=== PATIENT | female | born 1940 | race Caucasian/White ===

== ENCOUNTER 2022-07-04 13:28 | Inpatient (IN) | payer OTHER ==
[2022-07-04] MEDS ORDERED: ACETAMINOPHEN 1000 MG/100 ML BAG IVPB ONE (14:40)
[2022-07-04] MEDS ORDERED: LACTATED RINGERS SOLUTION 1000 ML INFUS.BAG IV ONE (14:42)
[2022-07-04] MEDS ORDERED: ACETAMINOPHEN INJECTION 100 ML IVPB ONE ×2 (15:17→15:22)
[2022-07-04] MEDS ORDERED: ONDANSETRON 4 MG/2 ML VIAL ONE (15:17)
[2022-07-04] MEDS ORDERED: ONDANSETRON 4 MG/2 ML VIAL IVPUSH ONE (15:30)
[2022-07-04 15:42] LABS: BASO % 0.2 % (0-2.0); HEMATOCRIT 39.9 % (32.4-45.2); HEMOGLOBIN 13.4 GM/dL (10.7-15.3); LYMPH % 9.2 % (8-40); MCH 31.6 pg (25.7-33.7); MCHC 33.5 g/dl (32.0-36.0); MEAN CELL VOLUME 94.1 fl (80-96); MEAN PLT VOLUME 6.7 fl (7.5-11.1); MONO % 9.4 % (3.8-10.2); NEUT % 81.2 % (42.8-82.8); PLATELET COUNT 303 10^3/uL (134-434); RBC 4.24 M/mm3 (3.60-5.2); RDW 13.7 % (11.6-15.6)
[2022-07-04 16:08] LABS: ALBUMIN 3.8 g/dl (3.4-5.0); BLOOD UREA NITROGEN 30.5 mg/dL (7-18); CALCIUM 9.5 mg/dL (8.5-10.1); MAGNESIUM 3.1 mg/dL (1.8-2.4)
[2022-07-04 16:11] LABS: CREATININE 0.7 mg/dL (0.55-1.3)
[2022-07-04 16:12] LABS: BILIRUBIN,TOTAL 0.5 mg/dL (0.2-1); TOT PROT 7.5 g/dl (6.4-8.2)
[2022-07-04 19:40] LABS: CHLORIDE 94 mmol/L (98-107); SODIUM 131 mmol/L (136-145)
[2022-07-04 19:41] LABS: CALCIUM 9.6 mg/dL (8.5-10.1); CO2 25 mmol/L (21-32); GLUCOSE,RANDOM 145 mg/dL (74-106)
[2022-07-04 19:42] LABS: BLOOD UREA NITROGEN 31.6 mg/dL (7-18)
[2022-07-04 19:46] LABS: CREATININE 0.8 mg/dL (0.55-1.3)
[2022-07-04 19:47] LABS: ANION GAP 13 MMOL/L (8-16)
[2022-07-04] MEDS: KCL 10 MEQ IVPB 10 MEQ/100 ML INFUS.BAG IVPB SCH (21:00)
[2022-07-04] MEDS ORDERED: KCL 10 MEQ IVPB 30 MEQ/300 ML INFUS.BAG IVPB ONE (21:30)
[2022-07-04] MEDS ORDERED: SODIUM CHLORIDE 1,000 ML IV SCH (22:45)
[2022-07-04] MEDS ORDERED: ROSUVASTATIN CA 20 MG TABLET PO SCH (23:00)
[2022-07-04] MEDS ORDERED: ACETAMINOPHEN 1000 MG/100 ML BAG IVPB PRN (23:47)
[2022-07-05] MEDS: KCL 10 MEQ IVPB 10 MEQ/100 ML INFUS.BAG IVPB SCH ×5 (00:50→17:34)
[2022-07-05] MEDS ORDERED: ACETAMINOPHEN 1000 MG/100 ML BAG IVPB PRN (01:50)
[2022-07-05] MEDS: SODIUM CHLORIDE 1,000 ML IV SCH (01:52)
[2022-07-05] MEDS: MUPIROCIN 2% TOPICAL OINTMENT FOR DECOLONIZATION NS SCH ×3 (01:52→21:14)
[2022-07-05] MEDS ORDERED: PROPOFOL 20 ML ONE (07:20)
[2022-07-05] MEDS ORDERED: SUCCINYLCHOLINE CHLORIDE 200 MG/10 ML SYRINGE ONE (07:20)
[2022-07-05] MEDS ORDERED: MIDAZOLAM HCL 2 MG/2 ML SINGLE DOSE VIAL ONE (07:20)
[2022-07-05] MEDS ORDERED: PHENYLEPHRINE HCL 10 MG/1 ML SINGLE DOSE VIAL ONE (07:33)
[2022-07-05] MEDS ORDERED: ETOMIDATE 20 MG/10 ML VIAL IVPUSH ONE (07:33)
[2022-07-05 07:58] LABS: INR 1.09 (0.83-1.09); PROTHROMBIN TIME (PATIENT) 12.6 SEC (9.7-13.0)
[2022-07-05 08:16] LABS: BASO % 0.2 % (0-2.0); CHLORIDE 99 mmol/L (98-107); HEMATOCRIT 35.3 % (32.4-45.2); HEMOGLOBIN 12.4 GM/dL (10.7-15.3); LYMPH % 4.9 % (8-40); MCH 32.7 pg (25.7-33.7); MCHC 35.1 g/dl (32.0-36.0); MEAN CELL VOLUME 93.1 fl (80-96); MEAN PLT VOLUME 7.5 fl (7.5-11.1); MONO % 7.5 % (3.8-10.2); NEUT % 87.4 % (42.8-82.8); PLATELET COUNT 276 10^3/uL (134-434); RBC 3.79 M/mm3 (3.60-5.2); RDW 13.7 % (11.6-15.6); SODIUM 132 mmol/L (136-145); WHITE BLOOD COUNT 15.6 K/mm3 (4.0-10.0)
[2022-07-05 08:22] LABS: ALBUMIN 3.1 g/dl (3.4-5.0); CALCIUM 8.5 mg/dL (8.5-10.1); CO2 23 mmol/L (21-32); GLUCOSE,RANDOM 122 mg/dL (74-106); MAGNESIUM 2.6 mg/dL (1.8-2.4)
[2022-07-05 08:26] LABS: CREATININE 0.6 mg/dL (0.55-1.3); PHOSPHOROUS 3.8 mg/dL (2.5-4.9); SGOT/AST 58 U/L (15-37); SGPT/ALT 38 U/L (13-61)
[2022-07-05 08:28] LABS: ALK PHOS 67 U/L (45-117); BILIRUBIN,TOTAL 0.8 mg/dL (0.2-1); TOT PROT 6.2 g/dl (6.4-8.2)
[2022-07-05 08:37] LABS: ANION GAP 11 MMOL/L (8-16)
[2022-07-05] MEDS ORDERED: ceFAZolin SODIUM 1 GM VIAL IVPB ONE (08:56)
[2022-07-05] MEDS ORDERED: metoPROLOL SUCCINATE 25 MG TAB.SR.24H (FP) PO SCH (10:00)
[2022-07-05] MEDS ORDERED: amLODIPine BESYLATE 5 MG TABLET (FP) PO SCH (10:00)
[2022-07-05] MEDS ORDERED: RAMIPRIL 5 MG CAPSULE PO SCH (10:00)
[2022-07-05] MEDS ORDERED: PNEUMOC 20-VAL CONJ-DIP CRM/PF 0.5 ML SYRINGE IM ONE (10:00)
[2022-07-05] MEDS ORDERED: SUGAMMADEX SODIUM 200 MG/2 ML VIAL ONE (10:47)
[2022-07-05] MEDS ORDERED: KETAMINE HCL 500 MG/10 ML VIAL ONE (10:50)
[2022-07-05] MEDS ORDERED: ACETAMINOPHEN INJECTION 100 ML IVPB ONE (10:51)
[2022-07-05] MEDS: RAMIPRIL 5 MG CAPSULE PO SCH ×2 (12:48→21:14)
[2022-07-05] MEDS: amLODIPine BESYLATE 5 MG TABLET (FP) PO SCH (12:48)
[2022-07-05] MEDS: metoPROLOL SUCCINATE 25 MG TAB.SR.24H (FP) PO SCH (12:49)
[2022-07-05] MEDS ORDERED: SODIUM CHLORIDE 0.9% 500 ML INFUS.BAG IV ONE (13:45)
[2022-07-05] MEDS: CEFAZOLIN SODIUM 2 GM in DEXTROSE 5%-WATER 100 ML IVPB SCH (17:45)
[2022-07-05 19:40] LABS: CHLORIDE 89 mmol/L (98-107); SODIUM 121 mmol/L (136-145)
[2022-07-05 19:42] LABS: ANION GAP 17 MMOL/L (8-16); CO2 15 mmol/L (21-32)
[2022-07-05 19:45] LABS: CREATININE 2.1 mg/dL (0.55-1.3)
[2022-07-05 19:57] LABS: CALCIUM 5.7 mg/dL (8.5-10.1); GLUCOSE,RANDOM 708 mg/dL (74-106)
[2022-07-05] MEDS: CHLORHEXIDINE GLUCONATE 4% CLEANSER FOR DECOLONIZATION TP SCH (21:14)
[2022-07-05 21:41] LABS: BLOOD UREA NITROGEN 28.8 mg/dL (7-18)
[2022-07-05 21:43] LABS: CREATININE 0.6 mg/dL (0.55-1.3)
[2022-07-05 21:45] LABS: BILIRUBIN,TOTAL 0.6 mg/dL (0.2-1); TOT PROT 4.4 g/dl (6.4-8.2)
[2022-07-05 21:49] LABS: ALBUMIN 2.5 g/dl (3.4-5.0); CALCIUM 7.7 mg/dL (8.5-10.1)
[2022-07-05] MEDS ORDERED: CHLORHEXIDINE GLUCONATE 4% CLEANSER FOR DECOLONIZATION TP SCH (22:00)
[2022-07-05] MEDS ORDERED: LACTATED RINGERS SOLUTION 1000 ML INFUS.BAG IV ONE (22:27)
[2022-07-06] MEDS ORDERED: LACTATED RINGERS SOLUTION 1000 ML INFUS.BAG IV ONE ×2 (00:09→02:28)
[2022-07-06] MEDS: CEFAZOLIN SODIUM 2 GM in DEXTROSE 5%-WATER 100 ML IVPB SCH (02:10)
[2022-07-06] MEDS: SODIUM CHLORIDE 1,000 ML IV SCH (03:06)
[2022-07-06] MEDS: PHENYLEPHRINE NS PREMIX 50,000 MCG/500 ML BAG CVP SCH (03:10)
[2022-07-06 07:16] LABS: BASO % 0.2 % (0-2.0); EOS % 0.1 % (0-4.5); HEMATOCRIT 34.8 % (32.4-45.2); HEMOGLOBIN 12.4 GM/dL (10.7-15.3); LYMPH % 12.7 % (8-40); MCH 33.5 pg (25.7-33.7); MCHC 35.6 g/dl (32.0-36.0); MEAN CELL VOLUME 94.1 fl (80-96); MEAN PLT VOLUME 6.9 fl (7.5-11.1); MONO % 4.7 % (3.8-10.2); NEUT % 82.3 % (42.8-82.8); PLATELET COUNT 266 10^3/uL (134-434); RDW 13.7 % (11.6-15.6); WHITE BLOOD COUNT 8.8 K/mm3 (4.0-10.0)
[2022-07-06 07:32] LABS: CALCIUM 7.4 mg/dL (8.5-10.1)
[2022-07-06 07:33] LABS: ALBUMIN 2.1 g/dl (3.4-5.0); BLOOD UREA NITROGEN 29.9 mg/dL (7-18)
[2022-07-06 07:36] LABS: CREATININE 0.6 mg/dL (0.55-1.3)
[2022-07-06 07:38] LABS: BILIRUBIN,TOTAL 0.4 mg/dL (0.2-1); TOT PROT 3.9 g/dl (6.4-8.2)
[2022-07-06] MEDS ORDERED: PIPERACILLIN/TAZOB 4.5 GM 4.5 GM in DEXTROSE 5%-WATER 100 ML IVPB ONE (09:00)
[2022-07-06] MEDS: KCL 10 MEQ IVPB 10 MEQ/100 ML INFUS.BAG IVPB SCH ×3 (09:10→13:11)
[2022-07-06] MEDS: amLODIPine BESYLATE 5 MG TABLET (FP) PO SCH (09:15)
[2022-07-06] MEDS: RAMIPRIL 5 MG CAPSULE PO SCH ×2 (09:15→21:25)
[2022-07-06] MEDS: metoPROLOL SUCCINATE 25 MG TAB.SR.24H (FP) PO SCH (09:15)
[2022-07-06] MEDS ORDERED: HYDROCORTISONE 1% TOPICAL CREAM 30 GM TUBE TP PRN (10:30)
[2022-07-06] MEDS: DEXTROSE 5%-LACTATED RINGERS 1,000 ML IV SCH (11:17)
[2022-07-06] MEDS: MUPIROCIN 2% TOPICAL OINTMENT FOR DECOLONIZATION NS SCH ×2 (11:18→21:25)
[2022-07-06] MEDS: ACETAMINOPHEN 1000 MG/100 ML BAG IVPB SCH ×3 (12:54→23:05)
[2022-07-06] MEDS: PIPERACILLIN/TAZOB 4.5 GM 4.5 GM in DEXTROSE 5%-WATER 100 ML IVPB SCH (17:33)
[2022-07-06] MEDS: CHLORHEXIDINE GLUCONATE 4% CLEANSER FOR DECOLONIZATION TP SCH (21:25)
[2022-07-07] MEDS: PIPERACILLIN/TAZOB 4.5 GM 4.5 GM in DEXTROSE 5%-WATER 100 ML IVPB SCH ×3 (02:08→18:25)
[2022-07-07] MEDS: SODIUM CHLORIDE 1,000 ML IV SCH (02:08)
[2022-07-07] MEDS: ACETAMINOPHEN 1000 MG/100 ML BAG IVPB SCH (06:00)
[2022-07-07] MEDS: PHENYLEPHRINE NS PREMIX 50,000 MCG/500 ML BAG CVP SCH ×2 (06:32→12:00)
[2022-07-07 07:18] LABS: BASO % 0.1 % (0-2.0); HEMATOCRIT 32.4 % (32.4-45.2); HEMOGLOBIN 11.5 GM/dL (10.7-15.3); MCH 33.4 pg (25.7-33.7); MCHC 35.4 g/dl (32.0-36.0); MEAN CELL VOLUME 94.3 fl (80-96); MEAN PLT VOLUME 6.9 fl (7.5-11.1); MONO % 4.5 % (3.8-10.2); NEUT % 84.4 % (42.8-82.8); PLATELET COUNT 247 10^3/uL (134-434); RBC 3.44 M/mm3 (3.60-5.2); WHITE BLOOD COUNT 8.9 K/mm3 (4.0-10.0)
[2022-07-07 07:37] LABS: CHLORIDE 106 mmol/L (98-107); SODIUM 138 mmol/L (136-145)
[2022-07-07 07:42] LABS: ALBUMIN 1.8 g/dl (3.4-5.0); BLOOD UREA NITROGEN 25.8 mg/dL (7-18); CALCIUM 7.2 mg/dL (8.5-10.1); CO2 26 mmol/L (21-32); GLUCOSE,RANDOM 127 mg/dL (74-106)
[2022-07-07 07:43] LABS: MAGNESIUM 2.4 mg/dL (1.8-2.4)
[2022-07-07 07:45] LABS: CREATININE 0.6 mg/dL (0.55-1.3); SGOT/AST 38 U/L (15-37); SGPT/ALT 19 U/L (13-61)
[2022-07-07 07:46] LABS: BILIRUBIN,TOTAL 0.6 mg/dL (0.2-1)
[2022-07-07 07:48] LABS: ALK PHOS 61 U/L (45-117)
[2022-07-07 07:49] LABS: ANION GAP 6 MMOL/L (8-16)
[2022-07-07] MEDS: KCL 10 MEQ IVPB 10 MEQ/100 ML INFUS.BAG IVPB SCH ×6 (08:38→23:20)
[2022-07-07] MEDS: amLODIPine BESYLATE 5 MG TABLET (FP) PO SCH (10:00)
[2022-07-07] MEDS: RAMIPRIL 5 MG CAPSULE PO SCH ×2 (10:00→21:37)
[2022-07-07] MEDS: MUPIROCIN 2% TOPICAL OINTMENT FOR DECOLONIZATION NS SCH ×2 (11:10→21:37)
[2022-07-07] MEDS: metoPROLOL SUCCINATE 25 MG TAB.SR.24H (FP) PO SCH (11:11)
[2022-07-07] MEDS: DEXTROSE 5%-LACTATED RINGERS 1,000 ML IV SCH (12:48)
[2022-07-07 17:16] LABS: BLOOD UREA NITROGEN 20.7 mg/dL (7-18); CALCIUM 7.1 mg/dL (8.5-10.1)
[2022-07-07 17:20] LABS: CREATININE 0.4 mg/dL (0.55-1.3)
[2022-07-07] MEDS: CHLORHEXIDINE GLUCONATE 4% CLEANSER FOR DECOLONIZATION TP SCH (21:38)
[2022-07-07] MEDS ORDERED: ROSUVASTATIN CA 20 MG TABLET PO SCH (22:00)
[2022-07-08] MEDS: PIPERACILLIN/TAZOB 4.5 GM 4.5 GM in DEXTROSE 5%-WATER 100 ML IVPB SCH ×3 (02:56→17:19)
[2022-07-08] MEDS: PHENYLEPHRINE NS PREMIX 50,000 MCG/500 ML BAG CVP SCH (07:00)
[2022-07-08 07:14] LABS: BASO % 0.2 % (0-2.0); EOS % 1.3 % (0-4.5); HEMATOCRIT 31.2 % (32.4-45.2); HEMOGLOBIN 10.8 GM/dL (10.7-15.3); LYMPH % 10.8 % (8-40); MCH 32.5 pg (25.7-33.7); MCHC 34.7 g/dl (32.0-36.0); MEAN CELL VOLUME 93.5 fl (80-96); MEAN PLT VOLUME 6.9 fl (7.5-11.1); MONO % 4.9 % (3.8-10.2); NEUT % 82.8 % (42.8-82.8); PLATELET COUNT 265 10^3/uL (134-434); RBC 3.34 M/mm3 (3.60-5.2); RDW 13.9 % (11.6-15.6); WHITE BLOOD COUNT 9.2 K/mm3 (4.0-10.0)
[2022-07-08 07:16] LABS: CALCIUM 7.5 mg/dL (8.5-10.1)
[2022-07-08 07:17] LABS: ALBUMIN 1.8 g/dl (3.4-5.0); BLOOD UREA NITROGEN 18.1 mg/dL (7-18); MAGNESIUM 2.2 mg/dL (1.8-2.4)
[2022-07-08 07:20] LABS: CREATININE 0.4 mg/dL (0.55-1.3)
[2022-07-08 07:22] LABS: BILIRUBIN,TOTAL 0.6 mg/dL (0.2-1); TOT PROT 4.2 g/dl (6.4-8.2)
[2022-07-08] MEDS: MUPIROCIN 2% TOPICAL OINTMENT FOR DECOLONIZATION NS SCH ×2 (09:58→21:35)
[2022-07-08] MEDS: RAMIPRIL 5 MG CAPSULE PO SCH (09:58)
[2022-07-08] MEDS: metoPROLOL SUCCINATE 25 MG TAB.SR.24H (FP) PO SCH (11:06)
[2022-07-08] MEDS: KCL 10 MEQ IVPB 10 MEQ/100 ML INFUS.BAG IVPB SCH ×2 (11:06→13:01)
[2022-07-08] MEDS: amLODIPine BESYLATE 5 MG TABLET (FP) PO SCH (11:06)
[2022-07-08] MEDS: DEXTROSE 5%-LACTATED RINGERS 1,000 ML IV SCH ×2 (11:07→16:00)
[2022-07-08] MEDS: CHLORHEXIDINE GLUCONATE 4% CLEANSER FOR DECOLONIZATION TP SCH (21:35)
[2022-07-09] MEDS: PIPERACILLIN/TAZOB 4.5 GM 4.5 GM in DEXTROSE 5%-WATER 100 ML IVPB SCH ×2 (02:25→09:36)
[2022-07-09 07:33] LABS: BASO % 0.3 % (0-2.0); EOS % 2.2 % (0-4.5); HEMATOCRIT 32.6 % (32.4-45.2); LYMPH % 14.8 % (8-40); MCHC 33.9 g/dl (32.0-36.0); MEAN CELL VOLUME 94.6 fl (80-96); MEAN PLT VOLUME 6.4 fl (7.5-11.1); MONO % 7.9 % (3.8-10.2); NEUT % 74.8 % (42.8-82.8); PLATELET COUNT 269 10^3/uL (134-434); RBC 3.45 M/mm3 (3.60-5.2); RDW 14.3 % (11.6-15.6); WHITE BLOOD COUNT 6.8 K/mm3 (4.0-10.0)
[2022-07-09 07:55] LABS: CHLORIDE 104 mmol/L (98-107); SODIUM 141 mmol/L (136-145)
[2022-07-09 08:01] LABS: CALCIUM 7.4 mg/dL (8.5-10.1); CO2 33 mmol/L (21-32); GLUCOSE,RANDOM 180 mg/dL (74-106)
[2022-07-09 08:02] LABS: ALBUMIN 1.8 g/dl (3.4-5.0)
[2022-07-09 08:05] LABS: CREATININE 0.4 mg/dL (0.55-1.3); SGOT/AST 25 U/L (15-37); SGPT/ALT 18 U/L (13-61)
[2022-07-09 08:06] LABS: BILIRUBIN,TOTAL 0.8 mg/dL (0.2-1); TOT PROT 4.6 g/dl (6.4-8.2)
[2022-07-09 08:07] LABS: ALK PHOS 88 U/L (45-117)
[2022-07-09 08:13] LABS: ANION GAP 4 MMOL/L (8-16); BLOOD UREA NITROGEN 11.6 mg/dL (7-18)
[2022-07-09] MEDS ORDERED: POTASSIUM CHLORIDE 40 MEQ in AMINO ACIDS 4.25%/D5W 1,000 ML IV SCH ×2 (08:30→09:00)
[2022-07-09] MEDS ORDERED: KCL 10 MEQ IVPB 10 MEQ/100 ML INFUS.BAG IVPB SCH (08:30)
[2022-07-09] MEDS: amLODIPine BESYLATE 5 MG TABLET (FP) PO SCH (09:37)
[2022-07-09] MEDS: MUPIROCIN 2% TOPICAL OINTMENT FOR DECOLONIZATION NS SCH ×2 (09:38→22:03)
[2022-07-09] MEDS: metoPROLOL SUCCINATE 25 MG TAB.SR.24H (FP) PO SCH (09:40)
[2022-07-09] MEDS ORDERED: POTASSIUM CHLORIDE ORAL LIQUID 20 MEQ/15 ML PO ONE (09:59)
[2022-07-09] MEDS ORDERED: ACETAMINOPHEN 500 MG TABLET (FP) PO SCH ×2 (10:00→12:45)
[2022-07-09] MEDS ORDERED: ACETAMINOPHEN 325 MG TABLET (FP) PO SCH ×2 (10:00)
[2022-07-09] MEDS ORDERED: ACETAMINOPHEN 500 MG TABLET (FP) PO PRN (11:17)
[2022-07-09] MEDS: DEXTROSE 5%-LACTATED RINGERS 1,000 ML IV SCH (11:58)
[2022-07-09] MEDS ORDERED: HYDROCORTISONE 1% TOPICAL CREAM 30 GM TUBE TP PRN (16:22)
[2022-07-09] MEDS ORDERED: DEXTROSE 5%-LACTATED RINGERS 1,000 ML IV SCH (16:22)
[2022-07-09] MEDS: ACETAMINOPHEN 500 MG TABLET (FP) PO SCH ×2 (18:14→23:17)
[2022-07-09] MEDS: POTASSIUM CHLORIDE 40 MEQ in AMINO ACIDS 4.25%/D5W 1,000 ML IV SCH (19:00)
[2022-07-10] MEDS: POTASSIUM CHLORIDE 40 MEQ in AMINO ACIDS 4.25%/D5W 1,000 ML IV SCH ×3 (03:00→21:07)
[2022-07-10] MEDS: ACETAMINOPHEN 500 MG TABLET (FP) PO SCH ×3 (05:21→21:07)
[2022-07-10] MEDS: ROSUVASTATIN CA 20 MG TABLET PO SCH ×2 (09:15→09:16)
[2022-07-10] MEDS: metoPROLOL SUCCINATE 25 MG TAB.SR.24H (FP) PO SCH (09:31)
[2022-07-10] MEDS: amLODIPine BESYLATE 5 MG TABLET (FP) PO SCH (09:31)
[2022-07-10] MEDS: KCL 10 MEQ IVPB 10 MEQ/100 ML INFUS.BAG IVPB SCH ×3 (09:32→15:17)
[2022-07-10] MEDS: MUPIROCIN 2% TOPICAL OINTMENT FOR DECOLONIZATION NS SCH (09:32)
[2022-07-10 10:09] LABS: BASO % 0.1 % (0-2.0); EOS % 1.9 % (0-4.5); HEMATOCRIT 32.6 % (32.4-45.2); HEMOGLOBIN 11.2 GM/dL (10.7-15.3); LYMPH % 16.2 % (8-40); MCH 32.4 pg (25.7-33.7); MCHC 34.3 g/dl (32.0-36.0); MEAN CELL VOLUME 94.3 fl (80-96); MEAN PLT VOLUME 6.9 fl (7.5-11.1); MONO % 9.6 % (3.8-10.2); NEUT % 72.2 % (42.8-82.8); PLATELET COUNT 300 10^3/uL (134-434); RBC 3.46 M/mm3 (3.60-5.2); RDW 13.7 % (11.6-15.6); WHITE BLOOD COUNT 6.4 K/mm3 (4.0-10.0)
[2022-07-10 10:36] LABS: BLOOD UREA NITROGEN 15.7 mg/dL (7-18); CALCIUM 7.3 mg/dL (8.5-10.1)
[2022-07-10 10:40] LABS: CREATININE 0.3 mg/dL (0.55-1.3)
[2022-07-10 14:56] VITALS: BMI 24.0
[2022-07-10] MEDS: ACETAMINOPHEN 1000 MG/100 ML BAG IVPB PRN (23:28)
[2022-07-11] MEDS: POTASSIUM CHLORIDE 40 MEQ in AMINO ACIDS 4.25%/D5W 1,000 ML IV SCH ×3 (04:57→14:49)
[2022-07-11 09:43] LABS: BASO % 0.1 % (0-2.0); HEMATOCRIT 31.4 % (32.4-45.2); HEMOGLOBIN 11.1 GM/dL (10.7-15.3); LYMPH % 12.9 % (8-40); MCH 33.1 pg (25.7-33.7); MCHC 35.3 g/dl (32.0-36.0); MEAN CELL VOLUME 93.7 fl (80-96); MEAN PLT VOLUME 6.4 fl (7.5-11.1); MONO % 8.5 % (3.8-10.2); NEUT % 76.5 % (42.8-82.8); PLATELET COUNT 295 10^3/uL (134-434); RBC 3.35 M/mm3 (3.60-5.2); RDW 13.5 % (11.6-15.6); WHITE BLOOD COUNT 7.2 K/mm3 (4.0-10.0)
[2022-07-11 10:07] LABS: CALCIUM 7.4 mg/dL (8.5-10.1)
[2022-07-11 10:08] LABS: ALBUMIN 1.7 g/dl (3.4-5.0); BLOOD UREA NITROGEN 13.6 mg/dL (7-18); MAGNESIUM 1.5 mg/dL (1.8-2.4)
[2022-07-11 10:11] LABS: CREATININE 0.3 mg/dL (0.55-1.3); PHOSPHOROUS 1.4 mg/dL (2.5-4.9)
[2022-07-11 10:12] LABS: BILIRUBIN,TOTAL 0.5 mg/dL (0.2-1); TOT PROT 4.5 g/dl (6.4-8.2)
[2022-07-11] MEDS: metoPROLOL SUCCINATE 25 MG TAB.SR.24H (FP) PO SCH (10:49)
[2022-07-11] MEDS: amLODIPine BESYLATE 5 MG TABLET (FP) PO SCH (10:49)
[2022-07-11] MEDS ORDERED: POTASSIUM PHOSPHATE 15 MM in SODIUM CHLORIDE 250 ML IVPB ONE (11:43)
[2022-07-11] MEDS: SODIUM CHLORIDE 1,000 ML IV SCH (14:48)
[2022-07-11] MEDS: ACETAMINOPHEN 1000 MG/100 ML BAG IVPB PRN (16:01)
[2022-07-12] MEDS: POTASSIUM CHLORIDE 40 MEQ in AMINO ACIDS 4.25%/D5W 1,000 ML IV SCH ×2 (01:44→13:22)
[2022-07-12 08:49] LABS: CALCIUM 7.5 mg/dL (8.5-10.1)
[2022-07-12 08:50] LABS: ALBUMIN 1.6 g/dl (3.4-5.0); BLOOD UREA NITROGEN 20.6 mg/dL (7-18); MAGNESIUM 1.4 mg/dL (1.8-2.4)
[2022-07-12 08:53] LABS: CREATININE 0.3 mg/dL (0.55-1.3)
[2022-07-12 08:55] LABS: BILIRUBIN,TOTAL 0.5 mg/dL (0.2-1); PHOSPHOROUS 2.4 mg/dL (2.5-4.9)
[2022-07-12 08:57] LABS: TOT PROT 4.4 g/dl (6.4-8.2)
[2022-07-12] MEDS: SODIUM CHLORIDE 1,000 ML IV SCH (11:04)
[2022-07-12] MEDS: amLODIPine BESYLATE 5 MG TABLET (FP) PO SCH (13:10)
[2022-07-12] MEDS: metoPROLOL SUCCINATE 25 MG TAB.SR.24H (FP) PO SCH (13:11)
[2022-07-12] MEDS ORDERED: MAGNESIUM SULF 50% (8.12 MEQ/2 ML-1 GM VIAL) IVPB ONE ×3 (15:12→22:30)
[2022-07-12] MEDS ORDERED: SODIUM PHOSPHATE - 20 MM in SODIUM CHLORIDE 250 ML IVPB ONE ×3 (15:12→20:28)
[2022-07-12] MEDS ORDERED: ALBUMIN HUMAN 5% 250 ML IV SOLUTION IV ONE ×2 (17:00→17:11)
[2022-07-12] MEDS ORDERED: CEFOXITIN SODIUM 2 GM in DEXTROSE 5%-WATER 100 ML IVPB NR (17:12)
[2022-07-12] MEDS ORDERED: cefOXitin SODIUM 2 GM VIAL (RESTRICTED TO ID) IVPB ONE (17:30)
[2022-07-12] MEDS ORDERED: HYDROCORTISONE 1% TOPICAL CREAM 30 GM TUBE TP PRN ×2 (18:40→20:28)
[2022-07-12] MEDS ORDERED: SODIUM CHLORIDE 1,000 ML IV SCH (18:40)
[2022-07-12] MEDS ORDERED: SUGAMMADEX SODIUM 200 MG/2 ML VIAL ONE (18:44)
[2022-07-12] MEDS ORDERED: ONDANSETRON 4 MG/2 ML VIAL IVPUSH PRN ×2 (19:22→20:28)
[2022-07-12] MEDS ORDERED: LACTATED RINGERS SOLUTION 1,000 ML IV SCH ×2 (19:30→20:28)
[2022-07-12] MEDS ORDERED: HYDROmorphone *PCA* 10MG/50ML DISP.SYRIN ONE (19:55)
[2022-07-12] MEDS ORDERED: HYDROmorphone *PCA* 10MG/50ML DISP.SYRIN PCA SCH (20:00)
[2022-07-12] MEDS ORDERED: HYDROmorphone *PCA* 10MG/50ML DISP.SYRIN PCA ONE (20:10)
[2022-07-12] MEDS ORDERED: ROSUVASTATIN CA 20 MG TABLET PO SCH (22:00)
[2022-07-12] MEDS ORDERED: ACETAMINOPHEN 1000 MG/100 ML BAG IVPB SCH (22:00)
[2022-07-12] MEDS: PIPERACILLIN/TAZOB 3.375 GM 3.375 GM in DEXTROSE 5%-WATER - 50 ML IVPB SCH (22:23)
[2022-07-12] MEDS: ACETAMINOPHEN 1000 MG/100 ML BAG IVPB SCH (22:30)
[2022-07-12] MEDS: ROSUVASTATIN CA 20 MG TABLET PO SCH (22:37)
[2022-07-12] MEDS ORDERED: POTASSIUM CHLORIDE 40 MEQ in AMINO ACIDS 4.25%/D5W 1,000 ML IV SCH (23:42)
[2022-07-13] MEDS: POTASSIUM CHLORIDE 40 MEQ in AMINO ACIDS 4.25%/D5W 1,000 ML IV SCH ×2 (00:45→03:34)
[2022-07-13] MEDS: PIPERACILLIN/TAZOB 3.375 GM 3.375 GM in DEXTROSE 5%-WATER - 50 ML IVPB SCH ×3 (02:04→19:16)
[2022-07-13] MEDS: ACETAMINOPHEN 1000 MG/100 ML BAG IVPB SCH ×2 (03:25→09:36)
[2022-07-13 07:51] LABS: HEMATOCRIT 34.1 % (32.4-45.2); HEMOGLOBIN 11.8 GM/dL (10.7-15.3); MCH 32.6 pg (25.7-33.7); MCHC 34.6 g/dl (32.0-36.0); MEAN CELL VOLUME 94.2 fl (80-96); MEAN PLT VOLUME 7.1 fl (7.5-11.1); PLATELET COUNT 461 10^3/uL (134-434); RBC 3.62 M/mm3 (3.60-5.2); RDW 14.1 % (11.6-15.6); WHITE BLOOD COUNT 15.8 K/mm3 (4.0-10.0)
[2022-07-13 08:10] LABS: CALCIUM 7.5 mg/dL (8.5-10.1)
[2022-07-13 08:11] LABS: ALBUMIN 1.5 g/dl (3.4-5.0); BLOOD UREA NITROGEN 27.4 mg/dL (7-18)
[2022-07-13 08:14] LABS: CREATININE 0.5 mg/dL (0.55-1.3)
[2022-07-13 08:15] LABS: BILIRUBIN,TOTAL 0.8 mg/dL (0.2-1); TOT PROT 4.1 g/dl (6.4-8.2)
[2022-07-13 09:00] LABS: ANISOCYTOSIS 0; HELMET CELLS 0; HOWELL-JOLLY BODIES 0; MACROCYTOSIS 0; OVALOCYTE 0; ROULEAU 0; SICKELED CELLS 0; TARGET CELLS 0; TEAR DROP CELLS 0; TOXIC GRANULATION 0
[2022-07-13] MEDS ORDERED: amLODIPine BESYLATE 5 MG TABLET (FP) PO SCH (10:00)
[2022-07-13] MEDS ORDERED: metoPROLOL SUCCINATE 25 MG TAB.SR.24H (FP) PO SCH (10:00)
[2022-07-13] MEDS: amLODIPine BESYLATE 5 MG TABLET (FP) PO SCH (10:08)
[2022-07-13] MEDS: metoPROLOL SUCCINATE 25 MG TAB.SR.24H (FP) PO SCH (10:08)
[2022-07-13] MEDS: AMINO ACIDS 4.25%/D5W 1,000 ML IV SCH ×2 (11:46→23:50)
[2022-07-13] MEDS ORDERED: SODIUM CHLORIDE 500 ML IV STA (13:16)
[2022-07-13 14:45] LABS: MAGNESIUM 2.1 mg/dL (1.8-2.4)
[2022-07-13 14:49] LABS: PHOSPHOROUS 4.9 mg/dL (2.5-4.9)
[2022-07-13] MEDS ORDERED: PIPERACILLIN/TAZOB 3.375 GM 3.375 GM in DEXTROSE 5%-WATER - 50 ML IVPB SCH (18:00)
[2022-07-13] MEDS: HEPARIN NA (PORCINE) 5,000 UNITS/ML 1ML VIAL SQ SCH (23:32)
[2022-07-14] MEDS: PIPERACILLIN/TAZOB 3.375 GM 3.375 GM in DEXTROSE 5%-WATER - 50 ML IVPB SCH ×3 (05:44→18:29)
[2022-07-14] MEDS: HEPARIN NA (PORCINE) 5,000 UNITS/ML 1ML VIAL SQ SCH ×2 (09:06→21:28)
[2022-07-14 09:09] LABS: BASO % 0.2 % (0-2.0); EOS % 0.8 % (0-4.5); HEMATOCRIT 30.7 % (32.4-45.2); HEMOGLOBIN 10.5 GM/dL (10.7-15.3); LYMPH % 6.9 % (8-40); MCH 32.2 pg (25.7-33.7); MCHC 34.3 g/dl (32.0-36.0); MEAN CELL VOLUME 93.9 fl (80-96); MEAN PLT VOLUME 6.9 fl (7.5-11.1); MONO % 3.6 % (3.8-10.2); NEUT % 88.5 % (42.8-82.8); PLATELET COUNT 527 10^3/uL (134-434); RBC 3.27 M/mm3 (3.60-5.2); RDW 14.2 % (11.6-15.6); WHITE BLOOD COUNT 13.6 K/mm3 (4.0-10.0)
[2022-07-14] MEDS: amLODIPine BESYLATE 5 MG TABLET (FP) PO SCH (09:12)
[2022-07-14] MEDS: metoPROLOL SUCCINATE 25 MG TAB.SR.24H (FP) PO SCH (09:12)
[2022-07-14 09:28] LABS: CALCIUM 7.4 mg/dL (8.5-10.1)
[2022-07-14 09:29] LABS: MAGNESIUM 2.1 mg/dL (1.8-2.4)
[2022-07-14 09:32] LABS: CREATININE 0.4 mg/dL (0.55-1.3)
[2022-07-14] MEDS: AMINO ACIDS 4.25%/D5W 1,000 ML IV SCH ×2 (10:14→16:37)
[2022-07-14] MEDS: HYDROmorphone *PCA* 10MG/50ML DISP.SYRIN PCA SCH (21:00)
[2022-07-15] MEDS: AMINO ACIDS 4.25%/D5W 1,000 ML IV SCH ×3 (03:35→15:03)
[2022-07-15] MEDS: PIPERACILLIN/TAZOB 3.375 GM 3.375 GM in DEXTROSE 5%-WATER - 50 ML IVPB SCH ×3 (03:35→17:01)
[2022-07-15 08:15] LABS: BASO % 0.2 % (0-2.0); EOS % 1.3 % (0-4.5); HEMATOCRIT 27.6 % (32.4-45.2); HEMOGLOBIN 9.7 GM/dL (10.7-15.3); LYMPH % 10.6 % (8-40); MCH 32.9 pg (25.7-33.7); MEAN CELL VOLUME 93.9 fl (80-96); MEAN PLT VOLUME 6.9 fl (7.5-11.1); NEUT % 83.9 % (42.8-82.8); PLATELET COUNT 530 10^3/uL (134-434); RBC 2.94 M/mm3 (3.60-5.2); RDW 14.1 % (11.6-15.6)
[2022-07-15 08:24] LABS: ALBUMIN 1.4 g/dl (3.4-5.0); BLOOD UREA NITROGEN 23.1 mg/dL (7-18); MAGNESIUM 1.9 mg/dL (1.8-2.4); PHOSPHOROUS 1.8 mg/dL (2.5-4.9)
[2022-07-15 08:26] LABS: BILIRUBIN,TOTAL 0.4 mg/dL (0.2-1); TOT PROT 4.2 g/dl (6.4-8.2)
[2022-07-15 08:27] LABS: CREATININE 0.3 mg/dL (0.55-1.3)
[2022-07-15] MEDS: amLODIPine BESYLATE 5 MG TABLET (FP) PO SCH (09:23)
[2022-07-15] MEDS: HEPARIN NA (PORCINE) 5,000 UNITS/ML 1ML VIAL SQ SCH ×2 (09:23→21:20)
[2022-07-15] MEDS: metoPROLOL SUCCINATE 25 MG TAB.SR.24H (FP) PO SCH (09:24)
[2022-07-15] MEDS: KCL 10 MEQ IVPB 10 MEQ/100 ML INFUS.BAG IVPB SCH ×3 (11:32→14:04)
[2022-07-15] MEDS: HYDROmorphone *PCA* 10MG/50ML DISP.SYRIN PCA SCH (21:19)
[2022-07-15] MEDS: ROSUVASTATIN CA 20 MG TABLET PO SCH (21:20)
[2022-07-16] MEDS: PIPERACILLIN/TAZOB 3.375 GM 3.375 GM in DEXTROSE 5%-WATER - 50 ML IVPB SCH ×3 (02:47→17:30)
[2022-07-16] MEDS: AMINO ACIDS 4.25%/D5W 1,000 ML IV SCH ×3 (03:00→19:00)
[2022-07-16 08:15] LABS: BASO % 0.4 % (0-2.0); EOS % 1.9 % (0-4.5); HEMATOCRIT 27.8 % (32.4-45.2); HEMOGLOBIN 10.1 GM/dL (10.7-15.3); MCH 33.8 pg (25.7-33.7); MCHC 36.3 g/dl (32.0-36.0); MEAN CELL VOLUME 93.1 fl (80-96); MEAN PLT VOLUME 6.7 fl (7.5-11.1); MONO % 4.8 % (3.8-10.2); NEUT % 80.9 % (42.8-82.8); PLATELET COUNT 570 10^3/uL (134-434); RBC 2.99 M/mm3 (3.60-5.2); RDW 14.2 % (11.6-15.6); WHITE BLOOD COUNT 8.5 K/mm3 (4.0-10.0)
[2022-07-16 08:33] LABS: CALCIUM 7.2 mg/dL (8.5-10.1)
[2022-07-16 08:34] LABS: ALBUMIN 1.5 g/dl (3.4-5.0); BLOOD UREA NITROGEN 16.7 mg/dL (7-18)
[2022-07-16 08:37] LABS: CREATININE 0.3 mg/dL (0.55-1.3)
[2022-07-16 08:39] LABS: BILIRUBIN,TOTAL 0.3 mg/dL (0.2-1); TOT PROT 4.4 g/dl (6.4-8.2)
[2022-07-16] MEDS: amLODIPine BESYLATE 5 MG TABLET (FP) PO SCH (09:56)
[2022-07-16] MEDS: metoPROLOL SUCCINATE 25 MG TAB.SR.24H (FP) PO SCH (09:56)
[2022-07-16] MEDS: HEPARIN NA (PORCINE) 5,000 UNITS/ML 1ML VIAL SQ SCH ×2 (09:57→21:27)
[2022-07-16] MEDS ORDERED: SODIUM CHLORIDE 250 ML IV STA (11:06)
[2022-07-16] MEDS ORDERED: SODIUM PHOSPHATE - 20 MM in SODIUM CHLORIDE 250 ML IVPB ONE (12:00)
[2022-07-16] MEDS: FAT EMULSION/OLIVE/SOY/PHOSPHO 250 ML IV SCH (21:41)
[2022-07-16] MEDS ORDERED: FAT EMULSION/OLIVE/SOY (CLINOLIPID) 250 ML EMULSION IV SCH (22:00)
[2022-07-17] MEDS: PIPERACILLIN/TAZOB 3.375 GM 3.375 GM in DEXTROSE 5%-WATER - 50 ML IVPB SCH ×3 (03:13→17:47)
[2022-07-17] MEDS: AMINO ACIDS 4.25%/D5W 1,000 ML IV SCH ×2 (05:02→13:51)
[2022-07-17 08:08] LABS: CALCIUM 7.3 mg/dL (8.5-10.1); CREATININE 0.3 mg/dL (0.55-1.3); MAGNESIUM 1.8 mg/dL (1.8-2.4)
[2022-07-17 08:10] LABS: TOT PROT 4.6 g/dl (6.4-8.2)
[2022-07-17 08:11] LABS: ALBUMIN 1.5 g/dl (3.4-5.0); BLOOD UREA NITROGEN 15.5 mg/dL (7-18)
[2022-07-17 08:14] LABS: BILIRUBIN,TOTAL 0.4 mg/dL (0.2-1); PHOSPHOROUS 2.5 mg/dL (2.5-4.9)
[2022-07-17] MEDS: amLODIPine BESYLATE 5 MG TABLET (FP) PO SCH (09:58)
[2022-07-17] MEDS: metoPROLOL SUCCINATE 25 MG TAB.SR.24H (FP) PO SCH (09:59)
[2022-07-17] MEDS: HEPARIN NA (PORCINE) 5,000 UNITS/ML 1ML VIAL SQ SCH ×2 (10:02→21:43)
[2022-07-17] MEDS ORDERED: SODIUM CHLORIDE 0.9%/KCL 10 MEQ/500 ML INFUS.BAG IV ONE (11:45)
[2022-07-17] MEDS: KCL 10 MEQ IVPB 10 MEQ/100 ML INFUS.BAG IVPB SCH ×3 (12:03→14:25)
[2022-07-17] MEDS: PANTOPRAZOLE SODIUM 40 MG VIAL IVPUSH SCH (12:03)
[2022-07-17] MEDS: POTASSIUM CHLORIDE 20 MEQ in AMINO ACIDS 4.25%/D5W 1,000 ML IV SCH ×2 (17:08→23:45)
[2022-07-17] MEDS: FAT EMULSION/OLIVE/SOY/PHOSPHO 250 ML IV SCH (22:34)
[2022-07-18] MEDS: PIPERACILLIN/TAZOB 3.375 GM 3.375 GM in DEXTROSE 5%-WATER - 50 ML IVPB SCH ×3 (03:29→17:48)
[2022-07-18 08:09] LABS: BASO % 0.7 % (0-2.0); EOS % 1.6 % (0-4.5); HEMATOCRIT 28.4 % (32.4-45.2); HEMOGLOBIN 10.1 GM/dL (10.7-15.3); LYMPH % 16.3 % (8-40); MCH 32.9 pg (25.7-33.7); MCHC 35.3 g/dl (32.0-36.0); MEAN CELL VOLUME 93.1 fl (80-96); NEUT % 73.4 % (42.8-82.8); PLATELET COUNT 732 10^3/uL (134-434); RBC 3.06 M/mm3 (3.60-5.2); WHITE BLOOD COUNT 5.9 K/mm3 (4.0-10.0)
[2022-07-18 08:32] LABS: CALCIUM 7.6 mg/dL (8.5-10.1)
[2022-07-18 08:33] LABS: ALBUMIN 1.7 g/dl (3.4-5.0); BLOOD UREA NITROGEN 14.4 mg/dL (7-18); MAGNESIUM 1.7 mg/dL (1.8-2.4)
[2022-07-18 08:35] LABS: CHOLESTEROL 157 mg/dL (50-200)
[2022-07-18 08:36] LABS: CREATININE 0.3 mg/dL (0.55-1.3); LDL CHOLESTEROL (ONLY SJRH) 111 mg/dL (5-100); PHOSPHOROUS 2.2 mg/dL (2.5-4.9)
[2022-07-18 08:38] LABS: BILIRUBIN,TOTAL 0.5 mg/dL (0.2-1); HDL CHOLESTEROL 24 mg/dL (40-60); TOT PROT 4.7 g/dl (6.4-8.2)
[2022-07-18] MEDS: amLODIPine BESYLATE 5 MG TABLET (FP) PO SCH (09:43)
[2022-07-18] MEDS: PANTOPRAZOLE SODIUM 40 MG VIAL IVPUSH SCH (09:43)
[2022-07-18] MEDS: HEPARIN NA (PORCINE) 5,000 UNITS/ML 1ML VIAL SQ SCH ×2 (09:43→21:22)
[2022-07-18] MEDS: metoPROLOL SUCCINATE 25 MG TAB.SR.24H (FP) PO SCH (09:43)
[2022-07-18] MEDS ORDERED: MAGNESIUM 2GM/50ML STERILE WATER IVPB IVPB ONE (12:00)
[2022-07-18] MEDS ORDERED: POTASSIUM PHOSPHATE 15 MM in SODIUM CHLORIDE 250 ML IVPB ONE (12:30)
[2022-07-18] MEDS: POTASSIUM CHLORIDE 20 MEQ in AMINO ACIDS 4.25%/D5W 1,000 ML IV SCH (12:38)
[2022-07-19] MEDS: PIPERACILLIN/TAZOB 3.375 GM 3.375 GM in DEXTROSE 5%-WATER - 50 ML IVPB SCH ×3 (02:53→17:54)
[2022-07-19] MEDS: PANTOPRAZOLE SODIUM 40 MG VIAL IVPUSH SCH (09:10)
[2022-07-19] MEDS: metoPROLOL SUCCINATE 25 MG TAB.SR.24H (FP) PO SCH (09:10)
[2022-07-19] MEDS ORDERED: PIPERACILLIN/TAZOBACTAM 3.375 GM VIAL IVPB ONE (09:11)
[2022-07-19] MEDS: amLODIPine BESYLATE 5 MG TABLET (FP) PO SCH (09:14)
[2022-07-19] MEDS: HEPARIN NA (PORCINE) 5,000 UNITS/ML 1ML VIAL SQ SCH ×3 (09:14→21:06)
[2022-07-19 11:44] LABS: BASO % 0.8 % (0-2.0); EOS % 2.2 % (0-4.5); HEMATOCRIT 30.5 % (32.4-45.2); HEMOGLOBIN 10.3 GM/dL (10.7-15.3); LYMPH % 17.3 % (8-40); MCH 31.2 pg (25.7-33.7); MCHC 33.6 g/dl (32.0-36.0); MEAN CELL VOLUME 92.7 fl (80-96); MEAN PLT VOLUME 6.4 fl (7.5-11.1); MONO % 7.7 % (3.8-10.2); PLATELET COUNT 775 10^3/uL (134-434); RBC 3.29 M/mm3 (3.60-5.2); RDW 14.7 % (11.6-15.6); WHITE BLOOD COUNT 5.4 K/mm3 (4.0-10.0)
[2022-07-19 12:20] LABS: ALBUMIN 1.9 g/dl (3.4-5.0); CALCIUM 7.7 mg/dL (8.5-10.1)
[2022-07-19 12:21] LABS: BLOOD UREA NITROGEN 12.2 mg/dL (7-18); MAGNESIUM 2.4 mg/dL (1.8-2.4)
[2022-07-19 12:23] LABS: CREATININE 0.4 mg/dL (0.55-1.3)
[2022-07-19 12:25] LABS: BILIRUBIN,TOTAL 0.3 mg/dL (0.2-1); TOT PROT 5.2 g/dl (6.4-8.2)
[2022-07-20] MEDS: PIPERACILLIN/TAZOB 3.375 GM 3.375 GM in DEXTROSE 5%-WATER - 50 ML IVPB SCH ×3 (03:30→18:07)
[2022-07-20] MEDS: amLODIPine BESYLATE 5 MG TABLET (FP) PO SCH (09:45)
[2022-07-20] MEDS: metoPROLOL SUCCINATE 25 MG TAB.SR.24H (FP) PO SCH (09:45)
[2022-07-20] MEDS: PANTOPRAZOLE 40 MG TABLET PO SCH (09:45)
[2022-07-20] MEDS: HEPARIN NA (PORCINE) 5,000 UNITS/ML 1ML VIAL SQ SCH ×2 (09:45→23:08)
[2022-07-20 10:53] LABS: BASO % 0.9 % (0-2.0); HEMATOCRIT 30.1 % (32.4-45.2); HEMOGLOBIN 10.2 GM/dL (10.7-15.3); LYMPH % 18.2 % (8-40); MCH 31.4 pg (25.7-33.7); MEAN CELL VOLUME 92.4 fl (80-96); MEAN PLT VOLUME 6.4 fl (7.5-11.1); MONO % 7.6 % (3.8-10.2); NEUT % 71.3 % (42.8-82.8); PLATELET COUNT 773 10^3/uL (134-434); RBC 3.25 M/mm3 (3.60-5.2); RDW 14.6 % (11.6-15.6); WHITE BLOOD COUNT 4.8 K/mm3 (4.0-10.0)
[2022-07-20 11:13] LABS: CALCIUM 7.6 mg/dL (8.5-10.1)
[2022-07-20 11:14] LABS: ALBUMIN 1.9 g/dl (3.4-5.0); BLOOD UREA NITROGEN 8.4 mg/dL (7-18); MAGNESIUM 2.2 mg/dL (1.8-2.4)
[2022-07-20 11:17] LABS: CREATININE 0.4 mg/dL (0.55-1.3)
[2022-07-20 11:19] LABS: BILIRUBIN,TOTAL 0.5 mg/dL (0.2-1); TOT PROT 5.1 g/dl (6.4-8.2)
[2022-07-20] MEDS ORDERED: HYDROCORTISONE 1% TOPICAL CREAM 30 GM TUBE TP PRN (17:40)
[2022-07-21] MEDS: PIPERACILLIN/TAZOB 3.375 GM 3.375 GM in DEXTROSE 5%-WATER - 50 ML IVPB SCH ×3 (02:15→17:38)
[2022-07-21] MEDS: PANTOPRAZOLE 40 MG TABLET PO SCH (10:17)
[2022-07-21] MEDS: metoPROLOL SUCCINATE 25 MG TAB.SR.24H (FP) PO SCH (10:17)
[2022-07-21] MEDS: amLODIPine BESYLATE 5 MG TABLET (FP) PO SCH (10:17)
[2022-07-21] MEDS: HEPARIN NA (PORCINE) 5,000 UNITS/ML 1ML VIAL SQ SCH ×2 (10:17→21:58)
[2022-07-22] MEDS: PIPERACILLIN/TAZOB 3.375 GM 3.375 GM in DEXTROSE 5%-WATER - 50 ML IVPB SCH ×3 (03:00→17:40)
[2022-07-22] MEDS: metoPROLOL SUCCINATE 25 MG TAB.SR.24H (FP) PO SCH (10:45)
[2022-07-22] MEDS: HEPARIN NA (PORCINE) 5,000 UNITS/ML 1ML VIAL SQ SCH ×2 (10:45→21:46)
[2022-07-22] MEDS: PANTOPRAZOLE 40 MG TABLET PO SCH (10:45)
[2022-07-22] MEDS: amLODIPine BESYLATE 5 MG TABLET (FP) PO SCH (10:46)
[2022-07-22 12:24] LABS: HEMATOCRIT 31.8 % (32.4-45.2); HEMOGLOBIN 10.6 GM/dL (10.7-15.3); MCH 31.2 pg (25.7-33.7); MCHC 33.2 g/dl (32.0-36.0); PLATELET COUNT 742 10^3/uL (134-434); RBC 3.38 M/mm3 (3.60-5.2); RDW 15.3 % (11.6-15.6)
[2022-07-22 12:39] LABS: WHITE BLOOD COUNT 6.1 K/mm3 (4.0-10.0)
[2022-07-22 12:40] LABS: BLOOD UREA NITROGEN 11.8 mg/dL (7-18)
[2022-07-22 12:44] LABS: CREATININE 0.5 mg/dL (0.55-1.3)
[2022-07-22 12:45] LABS: BILIRUBIN,TOTAL 0.4 mg/dL (0.2-1); TOT PROT 5.5 g/dl (6.4-8.2)
[2022-07-22 12:47] LABS: ANISOCYTOSIS 0; HELMET CELLS 0; HOWELL-JOLLY BODIES 0; MACROCYTOSIS 0; OVALOCYTE 0; ROULEAU 0; SICKELED CELLS 0; TARGET CELLS 0; TEAR DROP CELLS 0; TOXIC GRANULATION 0
[2022-07-22 12:54] LABS: PLATELET ESTIMATE INCREASED
[2022-07-23] MEDS: PIPERACILLIN/TAZOB 3.375 GM 3.375 GM in DEXTROSE 5%-WATER - 50 ML IVPB SCH ×3 (02:34→17:20)
[2022-07-23] MEDS: metoPROLOL SUCCINATE 25 MG TAB.SR.24H (FP) PO SCH (09:39)
[2022-07-23] MEDS: amLODIPine BESYLATE 5 MG TABLET (FP) PO SCH (09:39)
[2022-07-23] MEDS: HEPARIN NA (PORCINE) 5,000 UNITS/ML 1ML VIAL SQ SCH ×2 (09:39→22:19)
[2022-07-23] MEDS: PANTOPRAZOLE 40 MG TABLET PO SCH (09:39)
[2022-07-23 12:59] LABS: BASO % 0.4 % (0-2.0); EOS % 1.7 % (0-4.5); HEMATOCRIT 33.1 % (32.4-45.2); HEMOGLOBIN 11.4 GM/dL (10.7-15.3); MCH 31.9 pg (25.7-33.7); MCHC 34.4 g/dl (32.0-36.0); MEAN CELL VOLUME 92.7 fl (80-96); MONO % 9.7 % (3.8-10.2); NEUT % 69.2 % (42.8-82.8); PLATELET COUNT 688 10^3/uL (134-434); RBC 3.57 M/mm3 (3.60-5.2); RDW 15.1 % (11.6-15.6); WHITE BLOOD COUNT 5.8 K/mm3 (4.0-10.0)
[2022-07-23 14:40] LABS: ALBUMIN 2.1 g/dl (3.4-5.0); CALCIUM 7.9 mg/dL (8.5-10.1)
[2022-07-23 14:41] LABS: BLOOD UREA NITROGEN 12.4 mg/dL (7-18)
[2022-07-23 14:43] LABS: CREATININE 0.5 mg/dL (0.55-1.3)
[2022-07-23 14:44] LABS: BILIRUBIN,TOTAL 0.4 mg/dL (0.2-1); TOT PROT 5.4 g/dl (6.4-8.2)
[2022-07-23] MEDS ORDERED: INSULIN (NOVOLOG) ASPART 100 UNITS/ML 10ML VIAL ONE (16:50)
[2022-07-24] MEDS: metoPROLOL SUCCINATE 25 MG TAB.SR.24H (FP) PO SCH (10:07)
[2022-07-24] MEDS: amLODIPine BESYLATE 5 MG TABLET (FP) PO SCH (10:07)
[2022-07-24] MEDS: PANTOPRAZOLE 40 MG TABLET PO SCH (10:07)
[2022-07-24] MEDS: HEPARIN NA (PORCINE) 5,000 UNITS/ML 1ML VIAL SQ SCH ×2 (10:07→23:03)
[2022-07-24 11:40] LABS: BASO % 0.6 % (0-2.0); EOS % 2.5 % (0-4.5); HEMATOCRIT 31.9 % (32.4-45.2); HEMOGLOBIN 10.8 GM/dL (10.7-15.3); LYMPH % 18.6 % (8-40); MCH 31.5 pg (25.7-33.7); MCHC 33.8 g/dl (32.0-36.0); MEAN CELL VOLUME 93.2 fl (80-96); MEAN PLT VOLUME 6.7 fl (7.5-11.1); MONO % 7.9 % (3.8-10.2); NEUT % 70.4 % (42.8-82.8); PLATELET COUNT 648 10^3/uL (134-434); RBC 3.42 M/mm3 (3.60-5.2); WHITE BLOOD COUNT 5.5 K/mm3 (4.0-10.0)
[2022-07-24 12:03] LABS: CALCIUM 7.7 mg/dL (8.5-10.1)
[2022-07-24 12:05] LABS: MAGNESIUM 1.8 mg/dL (1.8-2.4)
[2022-07-24 12:07] LABS: CREATININE 0.4 mg/dL (0.55-1.3)
[2022-07-24 12:08] LABS: BILIRUBIN,TOTAL 0.4 mg/dL (0.2-1); TOT PROT 5.5 g/dl (6.4-8.2)
[2022-07-25 02:56] VITALS: RESP 18
[2022-07-25 07:55] LABS: BASO % 0.6 % (0-2.0); EOS % 2.8 % (0-4.5); HEMATOCRIT 32.8 % (32.4-45.2); LYMPH % 25.7 % (8-40); MCH 31.1 pg (25.7-33.7); MCHC 33.4 g/dl (32.0-36.0); MEAN CELL VOLUME 93.2 fl (80-96); MEAN PLT VOLUME 6.9 fl (7.5-11.1); MONO % 9.1 % (3.8-10.2); NEUT % 61.8 % (42.8-82.8); PLATELET COUNT 596 10^3/uL (134-434); RBC 3.52 M/mm3 (3.60-5.2); RDW 15.3 % (11.6-15.6); WHITE BLOOD COUNT 4.8 K/mm3 (4.0-10.0)
[2022-07-25 08:22] LABS: BLOOD UREA NITROGEN 13.2 mg/dL (7-18)
[2022-07-25 08:23] LABS: CALCIUM 7.9 mg/dL (8.5-10.1); MAGNESIUM 1.9 mg/dL (1.8-2.4)
[2022-07-25 08:27] LABS: CREATININE 0.3 mg/dL (0.55-1.3)
[2022-07-25 08:29] LABS: BILIRUBIN,TOTAL 0.3 mg/dL (0.2-1); TOT PROT 5.2 g/dl (6.4-8.2)
[2022-07-25 09:24] VITALS: BP 121/44; PULSE 71; TEMP 98
[2022-07-25] MEDS: metoPROLOL SUCCINATE 25 MG TAB.SR.24H (FP) PO SCH (09:24)
[2022-07-25] MEDS: HEPARIN NA (PORCINE) 5,000 UNITS/ML 1ML VIAL SQ SCH (09:24)
[2022-07-25] MEDS: amLODIPine BESYLATE 5 MG TABLET (FP) PO SCH (09:24)
[2022-07-25] MEDS: PANTOPRAZOLE 40 MG TABLET PO SCH (09:24)
== END 2022-07-25 14:59 | DRG 329 ==
LOC: JER 13:28 → JERBED 20:11 → JICU 07-05 01:32 → J5S 07-09 17:20 → J4W 07-12 21:33 → J7W 07-20 15:19
PROVIDERS: ADMIT Internal Medicine; ATTEND Nurse Practitioner Acute Care
PROC: 0DBE0ZZ Excision of Large Intestine, Open Approach (ICD-10-PCS; 2022-07-05)
PROC: 0D1L0Z4 Bypass Transverse Colon to Cutaneous, Open Approach (ICD-10-PCS; 2022-07-05)
PROC: 0DBL0ZZ Excision of Transverse Colon, Open Approach (ICD-10-PCS; 2022-07-12)
PROC: 0DBP0ZZ Excision of Rectum, Open Approach (ICD-10-PCS; 2022-07-12)
PROC: 0DTG0ZZ Resection of Left Large Intestine, Open Approach (ICD-10-PCS; principal; 2022-07-12 16:05)
DX: K56.699 Other intestinal obstruction unspecified as to partial versus complete obstruction (principal); J18.9 Pneumonia, unspecified organism; K65.8 Other peritonitis; E87.1 Hypo-osmolality and hyponatremia; K91.89 Other postprocedural complications and disorders of digestive system; I48.91 Unspecified atrial fibrillation; D64.9 Anemia, unspecified; R11.2 Nausea with vomiting, unspecified; E78.5 Hyperlipidemia, unspecified; I10 Essential (primary) hypertension; R00.0 Tachycardia, unspecified; R73.9 Hyperglycemia, unspecified; N81.4 Uterovaginal prolapse, unspecified; E87.6 Hypokalemia; B95.2 Enterococcus as the cause of diseases classified elsewhere; I95.9 Hypotension, unspecified; Z86.73 Personal history of transient ischemic attack (TIA), and cerebral infarction without residual deficits; Z85.3 Personal history of malignant neoplasm of breast; K46.9 Unspecified abdominal hernia without obstruction or gangrene; Y83.8 Other surgical procedures as the cause of abnormal reaction of the patient, or of later complication, without mention of misadventure at the time of the procedure
CPT/HCPCS: 0241U-QW; 36415; 71045-TC-FY; 71046-TC-FY; 74019-TC-FY; 74176-TC; 74177-TC; 80048; 80053; 80061; 82962; 83036; 83605; 83690; 83735; 84100; 84443; 84484; 85025; 85610; 86140; 86850; 86900; 86901; 87070; 87076; 87186; 87205; 87324; 87449; 88307-TC; 93005; 93010; 94010; 94760; 94761; 97116-GP; 97161-GP; 99285-25; C9803-CS; J1644; Q9967; U0003; U0005

== ENCOUNTER 2023-09-20 08:56 | Emergency (ER) | payer OTHER ==
[2023-09-20 09:34] VITALS: TEMP 98.8; BMI 19.0
[2023-09-20 10:13] LABS: BASO % 0.3 % (0-2.0); EOS % 0.7 % (0-4.5); HEMATOCRIT 41.1 % (32.4-45.2); HEMOGLOBIN 13.9 GM/dL (10.7-15.3); LYMPH % 18.1 % (8-40); MCH 32.5 pg (25.7-33.7); MCHC 33.8 g/dl (32.0-36.0); MEAN CELL VOLUME 96.2 fl (80-96); MEAN PLT VOLUME 7.6 fl (7.5-11.1); MONO % 6.2 % (3.8-10.2); NEUT % 74.7 % (42.8-82.8); PLATELET COUNT 230 10^3/uL (134-434); RBC 4.27 M/mm3 (3.60-5.2); RDW 13.4 % (11.6-15.6)
[2023-09-20 10:20] LABS: PROTHROMBIN TIME (PATIENT) 11.3 SEC (9.7-13.0)
[2023-09-20 10:22] LABS: ACTIVATED PTT 34.5 SECONDS (25.2-36.5)
[2023-09-20 10:41] LABS: POTASSIUM 3.2 mmol/L (3.5-5.1)
[2023-09-20 10:42] LABS: CALCIUM 8.6 mg/dL (8.5-10.1)
[2023-09-20 10:43] LABS: ALBUMIN 3.6 g/dl (3.4-5.0)
[2023-09-20 10:44] LABS: BLOOD UREA NITROGEN 17.9 mg/dL (7-18)
[2023-09-20 10:46] LABS: CREATININE 0.5 mg/dL (0.55-1.3)
[2023-09-20 10:48] LABS: TOT PROT 7.4 g/dl (6.4-8.2)
[2023-09-20 10:49] LABS: BILIRUBIN,TOTAL 0.8 mg/dL (0.2-1)
[2023-09-20] MEDS ORDERED: TENECTEplase 50 MG VIAL IVPUSH ONE (11:01)
[2023-09-20] MEDS: TENECTEplase 50 MG VIAL IVPUSH ONE (11:15)
[2023-09-20 11:18] VITALS: BP 143/67; PULSE 97; RESP 18
[2023-09-20] MEDS: NORMAL SALINE FLUSH 0.9% 5 ML SYRINGE IVPUSH SCH (11:19)
== END 2023-09-20 11:20 | disposition short-term general hospital (02) ==
LOC: JER 08:56
DX: R29.810 Facial weakness (principal); R53.1 Weakness; I63.9 Cerebral infarction, unspecified; Z20.822 Contact with and (suspected) exposure to COVID-19
CPT/HCPCS: 0241U-QW; 36415; 70450-TC; 70496-TC; 70498-TC; 71045-TC-FY; 80053; 80061; 82550; 83036; 83735; 84484; 85025; 85610; 85730; 86850; 86900; 86901; 93005; 93010; 99291; J3101; Q9967

== ENCOUNTER 2024-07-18 22:01 | Inpatient (IN) | payer OTHER ==
[2024-07-18] MEDS ORDERED: ACETAMINOPHEN INJECTION 100 ML ONE (23:19)
[2024-07-18] MEDS: ACETAMINOPHEN 1000 MG/100 ML BAG IVPB ONE (23:23)
[2024-07-18] MEDS: SODIUM CHLORIDE 0.9% 500 ML INFUS.BAG IV ONE (23:23)
[2024-07-18 23:31] LABS: BASO % 0.5 % (0-2.0); EOS % 0.2 % (0-4.5); HEMATOCRIT 38.3 % (32.4-45.2); HEMOGLOBIN 12.9 GM/dL (10.7-15.3); LYMPH % 29.5 % (8-40); MCHC 33.6 g/dl (32.0-36.0); MEAN CELL VOLUME 95.3 fl (80-96); MEAN PLT VOLUME 7.9 fl (7.5-11.1); MONO % 13.9 % (3.8-10.2); NEUT % 55.9 % (42.8-82.8); PLATELET COUNT 188 10^3/uL (134-434); RBC 4.02 M/mm3 (3.60-5.2); RDW 14.5 % (11.6-15.6); WHITE BLOOD COUNT 4.7 K/mm3 (4.0-10.0)
[2024-07-18 23:59] LABS: BLOOD UREA NITROGEN 29.9 mg/dL (7-18); CALCIUM 8.5 mg/dL (8.5-10.1)
[2024-07-19 00:05] LABS: BILIRUBIN,TOTAL 0.7 mg/dL (0.2-1); TOT PROT 6.5 g/dl (6.4-8.2)
[2024-07-19 03:40] LABS: INR 1.16 (0.83-1.09); PROTHROMBIN TIME (PATIENT) 12.8 SEC (9.7-13.0)
[2024-07-19 03:43] LABS: ACTIVATED PTT 32.7 SECONDS (25.2-36.5)
[2024-07-19] MEDS: SODIUM CHLORIDE 1,000 ML IV SCH (06:56)
[2024-07-19 08:03] LABS: EPI CELLS 14 /uL (0-25.1); HYALINE CASTS 3 /uL (0-3.1); PH,URINE 5.5 (5.0-8.0); URINE APPEARANCE CLEAR; URINE BACTERIA 43 /uL (0-1359); URINE BILIRUBIN NEGATIVE (NEGATIVE); URINE COLOR DK YELLOW; URINE GLUCOSE (UA) NEGATIVE (NEGATIVE); URINE KETONE NEGATIVE (NEGATIVE); URINE LEUK ESTERASE NEGATIVE (NEGATIVE); URINE NITRITE NEGATIVE (NEGATIVE); URINE PROTEIN 1+ (NEGATIVE); URINE UROBILINOGEN 0.2 mg/dL (0.2-1.0); URINE WBC 19 /uL (0-25.8)
[2024-07-19 08:11] LABS: POTASSIUM 4.2 mmol/L (3.5-5.1)
[2024-07-19 08:12] LABS: BASO % 0.6 % (0-2.0); EOS % 0.4 % (0-4.5); HEMATOCRIT 37.9 % (32.4-45.2); HEMOGLOBIN 12.4 GM/dL (10.7-15.3); LYMPH % 44.2 % (8-40); MCH 31.6 pg (25.7-33.7); MCHC 32.7 g/dl (32.0-36.0); MEAN CELL VOLUME 96.6 fl (80-96); MEAN PLT VOLUME 8.1 fl (7.5-11.1); MONO % 12.8 % (3.8-10.2); PLATELET COUNT 180 10^3/uL (134-434); RBC 3.92 M/mm3 (3.60-5.2); RDW 14.3 % (11.6-15.6); WHITE BLOOD COUNT 3.9 K/mm3 (4.0-10.0)
[2024-07-19 08:13] LABS: BLOOD UREA NITROGEN 28.1 mg/dL (7-18); MAGNESIUM 2.3 mg/dL (1.8-2.4)
[2024-07-19 08:17] LABS: CREATININE 0.8 mg/dL (0.55-1.3); PHOSPHOROUS 3.7 mg/dL (2.5-4.9)
[2024-07-19 08:27] LABS: URINE RBC 154 /uL (0-23.9)
[2024-07-19] MEDS ORDERED: SENNOSIDES 8.6MG TABLET (FP) PO PRN (08:38)
[2024-07-19] MEDS ORDERED: APIXABAN 2.5 MG TABLET ONE ×2 (10:43→21:13)
[2024-07-19] MEDS ORDERED: POLYETHYLENE GLYCOL (HEALTHYLAX) 3350 17 GM PACKET ONE (10:43)
[2024-07-19] MEDS ORDERED: OSELTAMIVIR PHOSPHATE 75 MG CAPSULE ONE (10:45)
[2024-07-19] MEDS: APIXABAN 2.5 MG TABLET PO SCH (10:52)
[2024-07-19] MEDS: CALCIUM 500MG/VIT-D 200 UNITS COMBO TABLET (FP) PO SCH (10:52)
[2024-07-19] MEDS: POLYETHYLENE GLYCOL (HEALTHYLAX) 3350 17 GM PACKET PO SCH (10:52)
[2024-07-19] MEDS: OSELTAMIVIR PHOSPHATE 75 MG CAPSULE PO SCH (11:28)
[2024-07-19] MEDS ORDERED: CEFTRIAXONE 1 G/50 ML PREMIX 50 ML IVPB ONE (12:54)
[2024-07-19] MEDS: CEFTRIAXONE 1 G/50 ML PREMIX 50 ML IVPB SCH (13:02)
[2024-07-19] MEDS ORDERED: ROSUVASTATIN CA 20 MG TABLET ONE (21:14)
[2024-07-19] MEDS ORDERED: OSELTAMIVIR PHOSPHATE 30 MG CAPSULE ONE (21:14)
[2024-07-19] MEDS: OSELTAMIVIR PHOSPHATE 30 MG CAPSULE PO SCH (22:01)
[2024-07-19] MEDS: ROSUVASTATIN CA 10 MG TABLET PO SCH (22:01)
[2024-07-20] MEDS ORDERED: POLYETHYLENE GLYCOL (HEALTHYLAX) 3350 17 GM PACKET ONE (11:12)
[2024-07-20] MEDS ORDERED: APIXABAN 2.5 MG TABLET ONE (11:13)
[2024-07-20] MEDS ORDERED: CEFTRIAXONE 1 G/50 ML PREMIX 50 ML IVPB ONE (11:13)
[2024-07-20] MEDS ORDERED: OSELTAMIVIR PHOSPHATE 30 MG CAPSULE ONE (11:16)
[2024-07-20 18:53] VITALS: BMI 21.9
[2024-07-20] MEDS: ACETAMINOPHEN 325 MG TABLET (FP) PO PRN (22:30)
[2024-07-21] MEDS: LISINOPRIL 5 MG TABLET PO ONE (11:34)
[2024-07-21 12:50] LABS: BASO % 0.4 % (0-2.0); EOS % 1.2 % (0-4.5); HEMATOCRIT 41.2 % (32.4-45.2); HEMOGLOBIN 13.6 GM/dL (10.7-15.3); LYMPH % 40.1 % (8-40); MCH 31.4 pg (25.7-33.7); MEAN PLT VOLUME 8.1 fl (7.5-11.1); MONO % 10.6 % (3.8-10.2); NEUT % 47.7 % (42.8-82.8); PLATELET COUNT 198 10^3/uL (134-434); RBC 4.33 M/mm3 (3.60-5.2); WHITE BLOOD COUNT 3.9 K/mm3 (4.0-10.0)
[2024-07-21 13:07] LABS: POTASSIUM 3.6 mmol/L (3.5-5.1)
[2024-07-21 13:10] LABS: ALBUMIN 3.1 g/dl (3.4-5.0); CALCIUM 8.3 mg/dL (8.5-10.1)
[2024-07-21 13:11] LABS: BLOOD UREA NITROGEN 15.2 mg/dL (7-18)
[2024-07-21 13:14] LABS: CREATININE 0.6 mg/dL (0.55-1.3)
[2024-07-21 13:15] LABS: BILIRUBIN,TOTAL 0.6 mg/dL (0.2-1); TOT PROT 7.2 g/dl (6.4-8.2)
[2024-07-23] MEDS: RAMIPRIL 5 MG CAPSULE PO SCH (11:25)
[2024-07-23] MEDS: amLODIPine BESYLATE 5 MG TABLET (FP) PO SCH (11:25)
[2024-07-23] MEDS ORDERED: metoPROLOL SUCCINATE 25 MG TAB.SR.24H (FP) PO SCH (11:30)
[2024-07-24 06:18] VITALS: RESP 19
[2024-07-24 09:54] VITALS: BP 116/65; PULSE 69; TEMP 97.3
== END 2024-07-24 15:12 | DRG 193 ==
LOC: JER 22:01 → JERBED 07-19 01:15 → OBSVTOIN 07-19 17:12 → J4W 07-20 16:13
PROVIDERS: ADMIT Internal Medicine; ATTEND Internal Medicine
DX: J10.00 Influenza due to other identified influenza virus with unspecified type of pneumonia (principal); G93.41 Metabolic encephalopathy; I10 Essential (primary) hypertension; E78.5 Hyperlipidemia, unspecified; I48.91 Unspecified atrial fibrillation; I73.9 Peripheral vascular disease, unspecified; M81.0 Age-related osteoporosis without current pathological fracture; E88.09 Other disorders of plasma-protein metabolism, not elsewhere classified; K59.00 Constipation, unspecified; R79.89 Other specified abnormal findings of blood chemistry; K21.9 Gastro-esophageal reflux disease without esophagitis; F03.90 Unspecified dementia, unspecified severity, without behavioral disturbance, psychotic disturbance, mood disturbance, and anxiety
CPT/HCPCS: 0241U-QW; 36415; 70450-TC; 71045-TC-FY; 72125-TC; 72170-TC-FY; 80048; 80053; 81003; 83036; 83735; 84100; 84436; 84439; 84443; 84481; 84484; 85025; 85610; 85730; 87086; 87186; 93005; 93010; 93306-TC; 99285-25; G0378; J0131